=== PATIENT | female | born 1960 | race Two or more races ===

== ENCOUNTER 2018-06-16 07:52 | Outpatient (CLI) | payer OTHER | END 2018-06-16 08:05 | disposition home or self-care (01) | LOC: MRI 07:52 | DX: K83.8 Other specified diseases of biliary tract (principal); R93.5 Abnormal findings on diagnostic imaging of other abdominal regions, including retroperitoneum; R10.84 Generalized abdominal pain | CPT/HCPCS: 74181 ==